=== PATIENT | female | born 1990 | race Caucasian/White ===

== ENCOUNTER 2022-06-28 17:35 | Emergency (ER) | payer OTHER ==
[~2022-06-28] VITALS: Ht 167.6 cm; Wt 53.5 kg
[2022-06-28 17:44] VITALS: BP 135/85
--- NOTE | 2022-06-28 19:04 | NUR ---
32 Y/O FEMALE BIB SELF C/O PALPITATIONS AND HEADACHE X4 DAYS, DENIES ANY DRUGS OR ALCOHOL, PER PT HER HEAD FEELS LIKE A "DRILL", DENIES ANY NVD, SOB. TOOK TYLENOL FOR PAIN WITH MINIMAL RELIEF NKA PMH: DENIES
[2022-06-28 19:12] LABS: BASOPHILS % (AUTO) 0.5 % (0.0-2.0); EOSINOPHILS # (AUTO) 0.2 K/uL (0-0.4); EOSINOPHILS % (AUTO) 2.1 % (0.0-4.0); HEMATOCRIT 38.3 % (36-48); HEMOGLOBIN 12.9 g/dL (12.0-16.0); LYMPHOCYTES # (AUTO) 2.1 K/uL (2.5-16.5); LYMPHOCYTES % (AUTO) 23.4 % (20.5-51.1); MEAN CORPUSCULAR HEMOGLOBIN 32 pg (27-31); MEAN CORPUSCULAR HGB CONC 34 g/dL (33-37); MEAN CORPUSCULAR VOLUME 94.7 fL (80-94); MONOCYTES # (AUTO) 0.4 K/uL (0.8-1.0); MONOCYTES % (AUTO) 4.9 % (1.7-9.3); NEUTROPHILS # (AUTO) 6.1 K/uL (1.8-7.7); NEUTROPHILS % (AUTO) 69.1 % (42.2-75.2); PLATELET COUNT (AUTO) 330 K/uL (140-450); RED BLOOD CELL COUNT(AUTO) 4.05 MIL/uL (4.20-5.40); RED CELL DISTRIBUTION WIDTH 12.6 % (11.6-13.7); WHITE BLOOD COUNT (AUTO) 8.8 K/uL (4.8-10.8)
[2022-06-28] MEDS ORDERED: METOCLOPRAMIDE 10 MG/2 ML INJ VIAL IVP ONE (19:20)
[2022-06-28] MEDS ORDERED: ACETAMINOPHEN EXTRA STRENGTH 500 MG TAB PO ONE (19:20)
[2022-06-28] MEDS ORDERED: KETOROLAC 15 MG/ML VIAL IVP ONE (19:20)
[2022-06-28] MEDS ORDERED: diphenhydrAMINE 50 MG/ML VIAL IVP ONE (19:20)
[2022-06-28 19:33] LABS: ALBUMIN 4.6 g/dL (3.4-5.0); ANION GAP 8.2 (8-16); ASPARTATE AMINOTRANSFERASE 11 U/L (15-37); CARBON DIOXIDE 30.1 mmol/L (21-32); CHLORIDE 103 mmol/L (98-107); CREATININE 0.8 mg/dL (0.6-1.3); FREE T4 (FREE THYROXINE) 0.81 ng/dL (0.76-1.46); GFR ARICAN-AMERICAN 106 mL/min (>90); GLUCOSE 110 mg/dL (74-106); POTASSIUM 4.3 mmol/L (3.5-5.1); SODIUM SERUM 137 mmol/L (136-145); THYROID STIMULATING HORMONE 1.87 uIU/mL (0.34-3.74); TOTAL BILIRUBIN 0.4 mg/dL (0.0-1.0); UREA NITROGEN, BLOOD 15 mg/dL (7-18)
--- NOTE | 2022-06-28 19:55 | NUR ---
PT TO BED #8
--- NOTE | 2022-06-28 20:04 | NUR ---
PT IN GOWN ON BEDSIDE [employer]PER[employer]OR
[2022-06-28] MEDS ORDERED: METO-485 PO (20:54)
[2022-06-28] MEDS ORDERED: IBUP-1842 PO (20:54)
[2022-06-28] MEDS ORDERED: HYDR25CA10 PO (20:54)
[2022-06-28] MEDS ORDERED: ACET-10509 PO (20:54)
[2022-06-28 21:23] VITALS: BP 135/85
--- NOTE | 2022-06-28 21:24 | NUR ---
Patient discharged with v/s stable. Written and verbal after care instructions given and explained. Patient verbalized understanding. Ambulatory with steady gait. All questions addressed prior to discharge. Advised to follow up with PMD. PT LEFT WITH HER BELONGINGS.
== END 2022-06-28 21:24 | disposition home or self-care (01) ==
LOC: MED 17:35
DX: R51.9 Headache, unspecified (principal); R00.2 Palpitations; Z79.899 Other long term (current) drug therapy
CPT/HCPCS: 36415; 70450; 80053; 84439; 84443; 84484; 85025; 93005; 96374; 96375; 99285; J1200; J1885; J2765